=== PATIENT | female | born 1985 | race Caucasian/White ===

== ENCOUNTER 2018-01-19 21:25 | Emergency (ER) | payer BC, OTHER ==
--- NOTE | 2018-01-19 21:33 | PDOC ---
Rapid Medical Evaluation Chief Complaint: Nausea Time Seen by Provider: 01/19/18 21:29 Medical Evaluation: Allergies Allergy/AdvReac Type Severity Reaction Status Date / Time No Known Allergies Allergy Verified 11/04/15 14:03 01/19/18 21:29 I have aperformed a brief in person medical evaluation Nae comes in c/o 3 weeks of intermittent epigastric and LLQ abdominal pain, with nausea and diarrhea, no relation to foods. no fever/chills, no known sick contacts, no recent travel. LMP 10 days ago regular WIll order UCG, CBC, BMP, UA The patient will proceed to the ED for further medical evaluation Discharge Disposition - Diagnosis Abdominal pain Qualifiers: Abdominal location: epigastric Qualified Code(s): R10.13 - Epigastric pain - Referrals Referrals: Tahmina Thomas [Primary Care Provider] - - Patient Instructions - Post Discharge Activity
[2018-01-19 21:35] VITALS: BMI 21.5
[2018-01-19 22:11] LABS: BASO % 0.1 % (0-2.0); EOS % 2.4 % (0-4.5); HEMATOCRIT 41.7 % (32.4-45.2); HEMOGLOBIN 14.6 GM/dL (10.7-15.3); LYMPH % 18.2 % (8-40); MCH 30.7 pg (25.7-33.7); MCHC 35.1 g/dl (32.0-36.0); MEAN CELL VOLUME 87.6 fl (80-96); MEAN PLT VOLUME 8.1 fl (7.5-11.1); MONO % 8.2 % (3.8-10.2); NEUT % 71.1 % (42.8-82.8); PLATELET COUNT 302 K/MM3 (134-434); RBC 4.76 M/mm3 (3.60-5.2); RDW 13.4 % (11.6-15.6); WHITE BLOOD COUNT 9.6 K/mm3 (4.0-10.0)
[2018-01-19] MEDS ORDERED: SODIUM CHLORIDE 1,000 ML IV STA (22:17)
--- NOTE | 2018-01-19 22:17 | PDOC ---
History of Present Illness - General Chief Complaint: Nausea Stated Complaint: NAUSEA,VOMITING Time Seen by Provider: 01/19/18 21:29 - History of Present Illness Initial Comments: 01/19/18 22:10 Patient is a 32 year old female with no significant past medical history, presented with intermittent nausea and diarrhea that started 3 weeks ago. Patient reported the nausea and diarrhea started after Thanksgiving, where patient had 5-6 episodes per day of nonbloody, loose watery stools for a week. She reported her boyfriend had similar symptoms which resolved after a few days. Patient went to Urgent care where she was prescribed Ondansetron, which she took twice as it did not provide any relief. Symptoms then resolved and patient was feeling better. One week ago, patient again experienced 5-6 episodes of diarrhea and nausea, accompanied by chills and intermittent epigastric and LLQ pain. Today, patient reports nausea, had 2 episodes of loose watery nonbloody stools. Denies fever, abdominal pain, vomiting, headache, dizziness. Denies chest pain, SOB, palpitations, urinary symptoms. Past History - Past Medical History Allergies/Adverse Reactions: Allergies Allergy/AdvReac Type Severity Reaction Status Date / Time No Known Allergies Allergy Verified 01/19/18 21:31 Home Medications: Ambulatory Orders Albuterol Sulfate Inhaler - [Ventolin HFA Inhaler -] 1 - 2 inh PO Q4H #1 inhaler 05/20/13 Diphenhydramine HCl [Benadryl -] 25 mg PO Q6H #20 capsule 11/04/15 EPINEPHrine (EPI-PEN 0.3MG) [Epipen 0.3MG -] 0.3 mg IM ASDIR #2 pens 11/04/15 predniSONE [Deltasone -] 20 mg PO DAILY #5 tablet 11/04/15 Metoclopramide HCl [Reglan -] 10 mg PO BID #14 tablet 01/20/18 COPD: No - Suicide/Smoking/Psychosocial Hx Smoking Status: No Smoking History: Never smoked Have you smoked in the past 12 months: No Number of Cigarettes Smoked Daily: 0 Information on smoking cessation initiated: No Hx Alcohol Use: No Drug/Substance Use Hx: No Substance Use Type: None Review of Systems - Review of Systems Constitutional: Yes: Chills. No: Fever, Loss of Appetite, Weakness, Unintentional Wgt. Loss HEENTM: No: Recent change in vision, Nose Congestion, Difficulty Swallowing Respiratory: No: Cough, Shortness of Breath Cardiac (ROS): No: Chest Pain, Palpitations ABD/GI: Yes: Diarrhea, Nausea. No: Abdominal Distended, Rectal Bleeding, Vomiting : No: Burning, Dysuria, Discharge Neurological: No: Headache, Numbness, Tingling, Weakness Psychiatric: Yes: Anxiety *Physical Exam - Vital Signs Last Vital Signs Temp Pulse Resp BP Pulse Ox 97.6 F 110 H 16 116/73 100 01/19/18 21:29 01/19/18 21:29 01/19/18 21:29 01/19/18 21:29 01/19/18 21:29 - Physical Exam Comments: 01/19/18 22:21 General: awake, alert, oriented, not in acute distress Head: no signs of acute trauma HEENT: PERRLA, EOMI, sclerae anicteric, no nasal discharge, non-erythematous oropharynx, dry mucous membranes Neck: soft, supple, trachea midline, without thyromegaly Lungs: clear to auscultation bilaterally Heart:regular rate and rhythm, normal S1/S2, no m,r,g Abdomen: soft, nontender, nondistended, NABS, no guarding, no masses, negative Avila's Ext: +2 pulses, no peripheral edema, cyanosis or clubbing Moderate Sedation - Procedure Monitoring Vital Signs: Procedure Monitoring Vital Signs Temperature 97.6 F 01/19/18 21:29 Pulse Rate 110 H 01/19/18 21:29 Respiratory Rate 16 01/19/18 21:29 Blood Pressure 116/73 01/19/18 21:29 O2 Sat by Pulse Oximetry (%) 100 01/19/18 21:29 ED Treatment Course - LABORATORY CBC & Chemistry Diagram: 01/19/18 21:53 01/19/18 21:53 Medical Decision Making - Medical Decision Making 01/19/18 22:24 Patient is a 32 year old female with no significant past medical history came in with intermittent episodes of nausea and diarrhea for 3 weeks. DDx include but not limited to gastroenteritis, colitis, IBD, IBS, pancreatitis , , hyperthyroidism CBC, CMP, Mg, Phos TSH EKG UA, urine hcg IV NS Iv reglan 01/19/18 22:43 Mg 1.7 Iv Mag 1gm 01/20/18 00:40 Patient reports feeling better. Nausea improved. Abdominal exam: soft, nontender,nondistended, NABS Dispo *DC/Admit/Observation/Transfer Diagnosis at time of Disposition: Gastroenteritis - Discharge Dispostion Disposition: HOME Decision to Admit order: No - Prescriptions Prescriptions: Metoclopramide HCl [Reglan -] 10 mg PO BID #14 tablet - Referrals Referrals: Tahmina Thomas [Primary Care Provider] - - Patient Instructions Printed Discharge Instructions: Diarrhea Additional Instructions: You were seen because you had nausea and diarrhea. Tests were done which were negative of any emergent concerns. Take Reglan 10mg twice a day as needed for nausea. Drink plenty of fluids. Follow-up with your primary care doctor within 2 days. Call 911 or go to the ED if with any worsening fever, chills, abdominal pain, shortness of breath, chest pain, palpitations or any new concerns noted. - Post Discharge Activity
[2018-01-19] MEDS ORDERED: METOCLOPRAMIDE HCL INJECTION 10 MG/2 ML VIAL IVPUSH ONE (22:19)
[2018-01-19 22:28] LABS: HCG,QUALITATIVE URINE Negative
[2018-01-19 22:36] LABS: ALBUMIN 3.6 g/dl (3.4-5.0); ALK PHOS 69 U/L (45-117); ANION GAP 9 MMOL/L (8-16); BILIRUBIN,TOTAL 0.5 mg/dL (0.2-1); BLOOD UREA NITROGEN 16 mg/dL (7-18); CALCIUM 8.5 mg/dL (8.5-10.1); CHLORIDE 103 mmol/L (98-107); CO2 25 mmol/L (21-32); CREATININE 0.6 mg/dL (0.55-1.3); GLUCOSE,RANDOM 90 mg/dL (74-106); LIPASE 191 U/L (73-393); MAGNESIUM 1.7 mg/dL (1.8-2.4); PHOSPHOROUS 3.4 mg/dL (2.5-4.9); POTASSIUM 4.1 mmol/L (3.5-5.1); SGOT/AST 10 U/L (15-37); SGPT/ALT 19 U/L (13-61); SODIUM 137 mmol/L (136-145); TOT PROT 6.9 g/dl (6.4-8.2); URINE APPEARANCE SLCLOUDY; URINE BILIRUBIN NEGATIVE (<2.0 mg/dL); URINE COLOR YELLOW; URINE GLUCOSE (UA) NEGATIVE (NEGATIVE); URINE KETONE 1+ (NEGATIVE); URINE LEUK ESTERASE NEGATIVE (NEGATIVE); URINE NITRITE NEGATIVE (NEGATIVE); URINE PROTEIN NEGATIVE (NEGATIVE); URINE UROBILINOGEN NEGATIVE mg/dL (0.2-1.0)
[2018-01-19] MEDS ORDERED: MAGNESIUM SULF 50% (8.12 MEQ/2 ML-1 GM VIAL) IVPB ONE (22:37)
[2018-01-19 22:40] LABS: EPI CELLS RARE /HPF (FEW); URINE MUCUS RARE
[2018-01-19] MEDS ORDERED: METOCLOPRAMIDE HCL INJECTION 10 MG/2 ML VIAL ONE (22:42)
--- NOTE | 2018-01-19 22:49 | PDOC ---
Attending Attestation - HPI HPI: 01/19/18 22:54 The patient is a 32 year old female, with no significant PMH, who presents to the emergency department with intermittent nausea and diarrhea for 3 weeks. The patient states for 1 week after Thanksgiving she had 5-6 episodes of diarrhea ( non bloody) per day. The patient states today prior to arrival she had 2 episodes of diarrhea (non bloody). The patient denies chest pain, shortness of breath, headache and dizziness. Denies fever, chills, vomit, and constipation. Denies dysuria, frequency, urgency and hematuria. Allergies: NKA Documentation prepared by Robert Carmona, acting as medical doctor md for Kain Vargas MD. <Robert Carmona - Last Filed: 01/19/18 22:54> - Resident Resident Name: Kasia Bolton - ED Attending Attestation I have performed the following: I have examined & evaluated the patient, The case was reviewed & discussed with the resident, I agree w/resident's findings & plan, Exceptions are as noted - Physicial Exam PE: 01/20/18 01:18 Patient is awake and alert, well-appearing, in no distress Normocephalic atraumatic PERRLA, EOMI, no scleral icterus mm-dry CTA RRR Abdomen is soft, nontender, nondistended, bowel sounds are normal and present in all 4 quadrants - Medical Decision Making 01/20/18 01:20 Patient is well-appearing 32-year-old female who presents with abdominal pain, now resolved, nausea without vomiting and several episodes of loose watery stools. Abdominal exam reveals no focal tenderness. CBC is within normal limit. CMP reveals mild hypomagnesemia. Will hydrate, we'll administer IV Reglan, we' ll supplement magnesium. We'll machine driller by mouth challenge. If patient tolerates , we'll discharge. <Kain Vargas - Last Filed: 01/20/18 01:21>
[2018-01-19] MEDS ORDERED: MAGNESIUM 1GM/D5W - 1 GM/100 ML IVPB IVPB ONE (23:14)
[2018-01-19 23:33] VITALS: BP 105/71; PULSE 101; TEMP 98.1
[2018-01-20] MEDS ORDERED: MAGNESIUM OXIDE 400 MG TABLET (FP) PO ONE (01:52)
[2018-01-20] MEDS ORDERED: MAGNESIUM OXIDE 400 MG TABLET (FP) ONE (01:54)
--- NOTE | 2018-01-20 10:17 | EKG ---
Test Reason : Blood Pressure : / mmHG Vent. Rate : 095 BPM Atrial Rate : 095 BPM P-R Int : 162 ms QRS Dur : 074 ms QT Int : 354 ms P-R-T Axes : 048 034 044 degrees QTc Int : 444 ms NORMAL SINUS RHYTHM NORMAL ECG NO PREVIOUS ECGS AVAILABLE Confirmed by ARJUN GRACE, SHAILA ([id number]) on 01/20/2018 10:17:25 AM Referred By: Confirmed By:SHAILA DÍAZ MD
== END 2018-01-20 02:03 | disposition home or self-care (01) ==
LOC: JER 21:25
PROC: 3E033GC Introduction of Other Therapeutic Substance into Peripheral Vein, Percutaneous Approach (ICD-10-PCS; principal; 2018-01-19)
PROC: 3E0337Z Introduction of Electrolytic and Water Balance Substance into Peripheral Vein, Percutaneous Approach (ICD-10-PCS; 2018-01-19)
DX: K52.9 Noninfective gastroenteritis and colitis, unspecified (principal)
CPT/HCPCS: 36415; 80053; 81003; 81015; 83690; 83735; 84100; 84443; 84702; 84703; 85025; 93005; 93010; 99284-25; J7030

== ENCOUNTER 2021-03-13 18:07 | Emergency (ER) | payer BC, OTHER ==
[2021-03-13 18:31] VITALS: BP 112/69; PULSE 87; TEMP 98; BMI 23.0
[2021-03-13] MEDS ORDERED: ACETAMINOPHEN 500 MG TABLET (FP) PO ONE (19:42)
[2021-03-13] MEDS ORDERED: DIPHTH,PERTUSS(ACELL),TET 0.5 ML DISP.SYRIN IM ONE (19:45)
[2021-03-14] MEDS ORDERED: LIDOCAINE 5% TOPICAL PATCH TP ONE (00:27)
[2021-03-14] MEDS ORDERED: KETOROLAC TROMETHAMINE 15 MG/ML VIAL IM ONE (00:27)
[2021-03-14] MEDS ORDERED: LIDOCAINE 5% TOPICAL PATCH ONE (00:28)
[2021-03-14] MEDS ORDERED: KETOROLAC TROMETHAMINE 15 MG/ML VIAL ONE (00:28)
[2021-03-14] MEDS ORDERED: DIPHTH,PERTUSS(ACELL),TET 0.5 ML DISP.SYRIN IM ONE (00:29)
[2021-03-14] MEDS ORDERED: LIDOCAINE PATCH REMOVAL MC SCH (22:00)
== END 2021-03-14 00:43 | disposition home or self-care (01) ==
LOC: JERFT 18:07
PROC: 3E0233Z Introduction of Anti-inflammatory into Muscle, Percutaneous Approach (ICD-10-PCS; principal; 2021-03-14)
PROC: 3E0234Z Introduction of Serum, Toxoid and Vaccine into Muscle, Percutaneous Approach (ICD-10-PCS; 2021-03-14)
DX: S70.11XA Contusion of right thigh, initial encounter (principal); V03.10XA Pedestrian on foot injured in collision with car, pick-up truck or van in traffic accident, initial encounter; Y92.9 Unspecified place or not applicable
CPT/HCPCS: 72170-TC-FY; 73552-TC-RT-FY; 84703; 90715; 99284-25

== ENCOUNTER 2022-12-02 21:46 | Emergency (ER) | payer SELFPAY ==
[2022-12-02 21:51] VITALS: BP 109/74; PULSE 70; RESP 20; TEMP 97.7; BMI 21.0
[2022-12-02] MEDS ORDERED: ACETAMINOPHEN 500 MG TABLET (FP) PO ONE (22:10)
[2022-12-02] MEDS ORDERED: ONDANSETRON 4 MG/2 ML VIAL IVPUSH ONE (22:10)
[2022-12-02] MEDS ORDERED: ONDANSETRON *ODT* 4 MG TABLET ONE (22:20)
[2022-12-02] MEDS ORDERED: ACETAMINOPHEN 500 MG TABLET (FP) ONE (22:34)
== END 2022-12-03 00:15 | disposition home or self-care (01) ==
LOC: JER 21:46 → JERFT 21:46
PROC: 3E033GC Introduction of Other Therapeutic Substance into Peripheral Vein, Percutaneous Approach (ICD-10-PCS; principal; 2022-12-02)
DX: S06.0X0A Concussion without loss of consciousness, initial encounter (principal); R51.9 Headache, unspecified; R11.0 Nausea; R42 Dizziness and giddiness; W06.XXXA Fall from bed, initial encounter; W22.8XXA Striking against or struck by other objects, initial encounter
CPT/HCPCS: 99284-25